=== PATIENT | male | born 1990 | race Caucasian/White ===

== ENCOUNTER 2019-02-04 21:30 | Emergency (ER) | payer OTHER ==
[~2019-02-04] VITALS: Ht 162.6 cm; Wt 71.2 kg
[2019-02-04 22:01] VITALS: Ht 162.6 cm; Wt 71.2 kg
[2019-02-05 00:45] LABS: BASOPHIL % 0.2 % (0-2); PLATELET COUNT 364 x10^3mcL (130-400); RED CELL DISTRIBUTION WIDTH 13.3 % (11.5-14.5)
[2019-02-05 00:53] LABS: CALCIUM 9.4 mg/dL (8.5-10.1); CARBON DIOXIDE 24.7 mmol/L (21-32); CHLORIDE SERUM 111 mmol/L (98-107); CREATININE SERUM 0.9 mg/dL (0.7-1.3); GFR1 > 60 mL/min; GLUCOSE SERUM 117 mg/dL (74-106); POTASSIUM SERUM 3.8 mmol/L (3.5-5.1); SODIUM SERUM 151 mmol/L (136-145)
[2019-02-05 00:59] LABS: ALBUMIN 4.3 g/dL (3.4-5.0); ALKALINE PHOSPHATASE 71 U/L (46-116); ALT/SGPT 23 U/L (16-63); AST/SGOT 9 U/L (15-37); BILIRUBIN TOTAL 0.37 mg/dL (0.20-1.00); LIPASE 118 IU/L (73-393)
[2019-02-05 01:01] LABS: TOTAL PROTEIN, SERUM 8.3 g/dL (6.4-8.2)
[2019-02-05 03:12] LABS: AMPHETAMINE QUAL UR NONE DETECTED (See below)
[2019-02-05 03:19] LABS: UA SPECIFIC GRAVITY 1.025 (1.005-1.035); microscopic required? YES; urine erythrocyte 3+ (NEGATIVE)
[2019-02-05 07:49] VITALS: BP 111/77
== END 2019-02-05 07:49 | disposition home or self-care (01) ==
LOC: ED 21:30
PROVIDERS: Emergency Medicine
DX: R07.89 Other chest pain (principal); E87.0 Hyperosmolality and hypernatremia; R31.9 Hematuria, unspecified; M19.90 Unspecified osteoarthritis, unspecified site; Z88.0 Allergy status to penicillin
CPT/HCPCS: 83880; 85378; J1885; J2270; Q9967

== ENCOUNTER 2019-02-05 15:52 | Emergency (ER) | payer OTHER ==
[~2019-02-05] VITALS: Ht 162.6 cm; Wt 71.7 kg
[2019-02-05 15:56] VITALS: Ht 162.6 cm; Wt 71.7 kg
[2019-02-05 19:01] LABS: microscopic required? NO
[2019-02-05 19:19] LABS: urine erythrocyte NEGATIVE (NEGATIVE)
[2019-02-05 20:22] VITALS: BP 126/77
== END 2019-02-05 20:22 | disposition home or self-care (01) ==
LOC: ED 15:52
PROVIDERS: Emergency Medicine
DX: T39.315A Adverse effect of propionic acid derivatives, initial encounter (principal); M79.10 Myalgia, unspecified site; M32.9 Systemic lupus erythematosus, unspecified; M19.90 Unspecified osteoarthritis, unspecified site; Z88.0 Allergy status to penicillin; Y92.89 Other specified places as the place of occurrence of the external cause
CPT/HCPCS: 87804; J2930; J7030; Q0163

== ENCOUNTER 2020-05-04 21:19 | Emergency (ER) | payer OTHER ==
[~2020-05-04] VITALS: Ht 162.6 cm; Wt 76.2 kg
[2020-05-04 21:26] VITALS: Ht 162.6 cm; Wt 76.2 kg
[2020-05-04 22:32] LABS: BASOPHIL % 0.7 % (0-2); PLATELET COUNT 402 x10^3mcL (130-400); RED CELL DISTRIBUTION WIDTH 14.4 % (11.5-14.5)
[2020-05-04 22:35] LABS: CALCIUM 8.6 mg/dL (8.5-10.1); CHLORIDE SERUM 102 mmol/L (98-107); CREATININE SERUM 0.9 mg/dL (0.7-1.3); GFR1 > 60 mL/min; GLUCOSE SERUM 93 mg/dL (74-106); SODIUM SERUM 138 mmol/L (136-145)
[2020-05-04 22:40] LABS: ALKALINE PHOSPHATASE 78 U/L (46-116); ALT/SGPT 25 U/L (16-63); AST/SGOT 33 U/L (15-37); BILIRUBIN TOTAL 0.4 mg/dL (0.20-1.00); HDL CHOLESTEROL 46 mg/dL (40-60); LIPASE 148 IU/L (73-393); TRIGLYCERIDES 52 mg/dL (<150)
[2020-05-04 22:44] LABS: ALBUMIN 3.3 g/dL (3.4-5.0); CHOLESTEROL 129 mg/dL (<200); CHOLESTEROL/HDL RATIO 2.8
[2020-05-04 22:59] LABS: FREE T4 1.35 ng/dL (0.76-1.46); FREE THYROXINE INDEX 3.3 ug/dL (1.4-4.5); T3 TOTAL 1.21 ng/mL; T4(THYROXINE) 8.6 ug/dL (4.7-13.3)
[2020-05-05 00:30] LABS: AMPHETAMINE QUAL UR POSITIVE (See below)
[2020-05-05 01:40] VITALS: BP 142/89
== END 2020-05-05 01:32 | disposition home or self-care (01) ==
LOC: ED 21:19
PROVIDERS: Specialist
DX: J18.9 Pneumonia, unspecified organism (principal); E87.6 Hypokalemia; F15.10 Other stimulant abuse, uncomplicated; M19.90 Unspecified osteoarthritis, unspecified site; Z88.0 Allergy status to penicillin; Z20.828 Contact with and (suspected) exposure to other viral communicable diseases
CPT/HCPCS: 83880; 84439; Q0092; U0003-CS